=== PATIENT | female | born 1990 | race Two or more races ===

== ENCOUNTER 2023-07-13 22:19 | Emergency (ER) | payer MEDICAID, OTHER ==
[~2023-07-13] VITALS: Ht 167.6 cm; Wt 61.2 kg
[2023-07-13 22:25] VITALS: BP 93/47; PULSE 122; RESP 18; TEMP 98.1; O2SAT 99
[2023-07-13] MEDS ORDERED: MAGNESIUM/ALUMINUM HYDROXIDE/SIMETHICONE 30ML UDC PO STA (23:31)
[2023-07-13] MEDS ORDERED: ONDANSETRON 4MG ODT PO STA (23:31)
[2023-07-13] MEDS ORDERED: SODIUM CHLORIDE 0.9% 1,000 ML IV ONE (23:45)
== END 2023-07-13 23:56 | disposition home or self-care (01) ==
LOC: ER 22:19
DX: R10.13 Epigastric pain (principal)
CPT/HCPCS: 99283; J7030